=== PATIENT | female | born 2000 | race Two or more races ===

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

== ENCOUNTER 2019-01-20 22:05 | Emergency (ER) | payer OTHER ==
[2019-01-20] MEDS ORDERED: NS 1,000 ML IV ONE (22:55)
[2019-01-20] MEDS ORDERED: ONDANSETRON 4 MG/2 ML VIAL IVP ONE (22:55)
--- NOTE | 2019-01-20 22:59 | EDPHY ---
H & P Stated Complaint: epigastric abd pain since 1700, + nausea and vomiting Time Seen by Provider: 01/20/19 22:40 HPI/ROS: CHIEF COMPLAINT: Right upper quadrant abdominal pain since 5:00 p.m. HISTORY OF PRESENT ILLNESS: 18-year-old female describes intermittent right upper quadrant pain for the past several months worse this evening in consistent since this evening approximately 5:00 p.m. associated nausea, vomiting. No history of abdominal surgeries or diagnosis chronic abdominal pathology. Denies: Diarrhea, melena, hematochezia, back or flank pain, urinary abnormality PRIMARY CARE PROVIDER: REVIEW OF SYSTEMS: 10 systems reviewed and negative with the exception of the elements mentioned in the history of present illness PAST MEDICAL & SURGICAL HISTORY: No pertinent medical or surgical history SOCIAL HISTORY: Today is Sunday. Patient does note heavy alcohol use this . PHYSICAL EXAM (Prior to examination, patient consented to physical exam, hands were washed and my usual and customary physical exam procedures followed) 1) GENERAL: Well-developed, well-nourished, alert and oriented. Appears to be in no acute distress. 2) HEAD: Normocephalic, atraumatic 3) HEENT: Pupils equal, round, reactive to light bilaterally. Sclera anicteric. Nasopharynx, oropharynx, clear, no lesions. Dry mucous membranes. 4) NECK: Full range of motion, no meningeal signs. 5) LUNGS: Clear auscultation bilaterally, no wheezes, no rhonchi, no retractions. 6) HEART: Regular rate and rhythm, no murmur, no heave, no gallop. 7) ABDOMEN: tender to palpation epigastrium and right upper quadrant, negative McBurney's, negative Rovsing's, negative peritoneal sign, 8) MUSCULOSKELETAL: Moving all extremities, no focal areas of tenderness, no obvious trauma. No peripheral edema or discoloration. 9) BACK: No CVA tenderness, no midline vertebral tenderness, no fluctuance, no step-off, no obvious trauma, no visual or palpable abnormality. 10) SKIN: No rash, no petechiae. 11) Psychiatric: Patient is oriented X 3, there is no agitation. DIFFERENTIAL DIAGNOSIS: In no particular order, including but not limited to biliary colic, cholecystitis, peptic ulcer disease, pancreatitis, and gastroenteritis. This is a partial list of diagnoses considered. These considerations are based on history, physical exam, past history and reassessment. - Personal History LMP (Females 10-55): 15-21 Days Ago Current Tetanus Diphtheria and Acellular Pertussis (TDAP): Yes - Medical/Surgical History Hx Asthma: No Hx Chronic Respiratory Disease: No Hx Diabetes: No Hx Cardiac Disease: No Hx Renal Disease: No Hx Cirrhosis: No Hx Alcoholism: No Hx HIV/AIDS: No Hx Splenectomy or Spleen Trauma: No Other PMH: L humerus fx - Social History Smoking Status: Current every day smoker Constitutional: Initial Vital Signs Temperature (C) 37.0 C 01/20/19 22:13 Heart Rate 102 H 01/20/19 22:13 Respiratory Rate 16 01/20/19 22:13 Blood Pressure 95/74 L 01/20/19 22:13 O2 Sat (%) 98 01/20/19 22:13 O2 Delivery Mode Room Air Allergies/Adverse Reactions: No Known Allergies Allergy (Unverified 12/31/17 16:57) Home Medications: Medication Instructions Recorded Acne Medication 01/20/19 Control 01/20/19 Famotidine [Pepcid] 20 mg PO BID #10 tablet 01/21/19 Pantoprazole Sodium [Protonix 40mg 40 mg PO DAILY #30 tab 01/21/19 (RX)] Medical Decision Making ED Course/Re-evaluation: 10:58 p.m.: Care of patient under supervision of secondary supervising physician Dr Page with whom I discussed case. Last oral intake 5:00 p.m. Today. 11:53 p.m.: Abdominal ultrasound interpreted by tele radiology services "free fluid in the region of the head of the pancreas possible thickening of the adjacent duodenum for which CT scanning is suggested." CT imaging ordered. 1:10 a.m.: CT imaging interpreted by tele radiologist shows fat stranding around the duodenum and proximal jejunum representing duodenitis and proximal jejunum it is. Patient reports heavy alcohol use over the past [address] Dave Tucker recommended no further intervention. 1:17 a.m.: Patient comfortable. Recommend follow up with Gastroenterology. Starting proton pump inhibitor, Pepcid, strict return precautions provided. She feels comfortable being discharged home. - Data Points Laboratory Results: Laboratory Results 01/20/19 22:30 01/20/19 22:30 Medications Given: Discontinued Medications Al Hydroxide/Mg Hydroxide (Maalox Susp) 30 ml PO ONCE ONE Stop: 01/21/19 01:13 Last Admin: 01/21/19 01:24 Dose: 30 ml Famotidine (Pepcid) 20 mg PO EDNOW ONE Stop: 01/21/19 01:13 Last Admin: 01/21/19 01:24 Dose: 20 mg Hyoscyamine Sulfate (Levsin, Hyomax-Sl) 0.25 mg PO ONCE ONE Stop: 01/21/19 01:13 Last Admin: 01/21/19 01:24 Dose: 0.25 mg Sodium Chloride (Ns) 1,000 mls @ 0 mls/hr IV ONCE ONE PRN Reason: Wide Open Stop: 01/20/19 22:56 Last Admin: 01/20/19 23:00 Dose: 1,000 mls Lidocaine (Lidocaine 2% Viscous) 15 ml PO ONCE ONE Stop: 01/21/19 01:13 Last Admin: 01/21/19 01:24 Dose: 15 ml Ondansetron HCl (Zofran) 4 mg IVP EDNOW ONE Stop: 01/20/19 22:56 Last Admin: 01/20/19 23:00 Dose: 4 mg Pantoprazole Sodium (Protonix) 40 mg PO EDNOW ONE Stop: 01/21/19 01:13 Last Admin: 01/21/19 01:24 Dose: 40 mg Departure - Departure Disposition: Home, Routine, Self-Care Clinical Impression: Epigastric pain Condition: Good Instructions: Epigastric Pain (ED) Additional Instructions: Seek immediate medical attention if you develop new or worsening symptoms, if you develop fevers, chills, inability to tolerate oral intake or any other symptoms that concerns you. Referrals: Richar Wick MD [Medical Doctor] - As per Instructions Stand Alone Forms: School Excuse Prescriptions: Famotidine [Pepcid] 20 mg PO BID #10 tablet Pantoprazole Sodium [Protonix 40mg (RX)] 40 mg PO DAILY #30 tab
[2019-01-20 23:00] LABS: PLATELET COUNT 396 10^3/uL (150-400)
[2019-01-20] MEDS ORDERED: IOPAMIDOL (ISOVUE-300) 100 ML BTL ONE (23:50)
[2019-01-21] MEDS ORDERED: LIDOCAINE 2% VISCOUS 15 ML UDCUP PO ONE (01:12)
[2019-01-21] MEDS ORDERED: PANTOPRAZOLE SODIUM 40 MG TAB PO ONE (01:12)
[2019-01-21] MEDS ORDERED: FAMOTIDINE 20 MG TAB PO ONE (01:12)
[2019-01-21] MEDS ORDERED: MAG HYDROX/AL HYDROX/SIMETH 30 ML UDCUP PO ONE (01:12)
[2019-01-21] MEDS ORDERED: HYOSCYAMINE SULFATE 0.125 MG TAB PO ONE (01:12)
[2019-01-21 01:37] VITALS: BP 100/74
== END 2019-01-21 01:37 | disposition home or self-care (01) ==
DX: R10.13 Epigastric pain (principal); F17.200 Nicotine dependence, unspecified, uncomplicated
CPT/HCPCS: 96374; J2405; Q9967